=== PATIENT | female | born 1995 | race Two or more races ===

== ENCOUNTER 2017-08-23 11:34 | Emergency (ER) | payer OTHER ==
[~2017-08-23] VITALS: Ht 162.6 cm; Wt 83.9 kg
[2017-08-23 11:43] VITALS: BP 131/71
== END 2017-08-23 14:35 | disposition left against medical advice (07) ==
LOC: ER 11:34
DX: R10.9 Unspecified abdominal pain (principal); R51 Headache; Z53.21 Procedure and treatment not carried out due to patient leaving prior to being seen by health care provider